=== PATIENT | female | born 1980 | race Caucasian/White ===

== ENCOUNTER 2024-07-30 15:34 | Outpatient (CLI) | payer MEDICARE, SELFPAY ==
--- NOTE | ~2024-07-30 | XR_ITS ---
Left Shoulder Technique: AP and scapular Y views were obtained. Clinical History: Pain Findings: No fracture or dislocation is seen. Osseous alignment is anatomic. The glenohumeral and acr omioclavicular joint spaces are preserved. Soft tissues are unremarkable. Impression: Unremarkable left shoulder radiographs. Reviewed, dictated and finalized at [facility]. Impression: Unremarkable left shoulder radiographs.
--- NOTE | ~2024-07-30 | XR_ITS ---
EXAMINATION: XR ankle LT min 3V DATE: 07/30/2024 16:29 INDICATION: Contracture, left foot. Multiple joint pain. TECHNIQUE: 4 views of left ankle were obtained. COMPARISON: None. FINDINGS: There is inversion of the foot. There is varus angulation at [place]opart joint. No fracture. Karine int spaces are normal. IMPRESSION: 1. No fracture. Reviewed, dictated and finalized at location B. IMPRESSION: 1. No fracture.
--- NOTE | ~2024-07-30 | XR_ITS ---
EXAMINATION: XR foot LT 2V DATE: 07/30/2024 16:29 INDICATION: Contracture, left foot. Multiple joint pain. TECHNIQUE: 2 views of left foot were obtained. COMPARISON: None. FINDINGS: There is inversion of the foot. There is varus angulation at Chopart joint. No fracture. Karine int spaces are normal. IMPRESSION: 1. No fracture. Reviewed, dictated and finalized at location B. IMPRESSION: 1. No fracture.
--- NOTE | ~2024-07-30 | XR_ITS ---
EXAMINATION: XR shoulder RT min 2V DATE: 07/30/2024 16:29 INDICATION: Right shoulder pain. TECHNIQUE: 4 views of right shoulder were obtained. COMPARISON: None. FINDINGS: Alignment is normal. No fracture. The glenohumeral joint is not well profiled. Joint spaces are normal. IMPRESSION: 1. Normal right shoulder. Note that the glenohumeral joint is not well profiled. Reviewed, dictated and finalized at location B. IMPRESSION: 1. Normal right shoulder. Note that the glenohumeral joint is not well profiled .
--- NOTE | ~2024-07-30 | XR_ITS ---
CHEST RADIOGRAPH, PA AND LATERAL CLINICAL HISTORY: R07.9 - Chest pain, unspecified . COMPARISON: None available TECHNIQUE: PA and lateral views of the chest. FINDINGS The cardiomediastinal silhouette is unremarkable. The lungs are clear. IMPRESSION: No focal infiltrate or effusion. If clinical suspicion persists, cross-sectional imaging (noncontrast enhanced CT examination of the c hest) is suggested for further evaluation. Reviewed, dictated and finalized at location A. IMPRESSION: No focal infiltrate or effusion. If clinical suspicion persists, cross-sectional imaging (noncontrast enhanced C T examination of the chest) is suggested for further evaluation.
== END 2024-07-30 15:35 | disposition home or self-care (01) ==
LOC: GOSHIMG 15:35
PROVIDERS: PCP Family Medicine; Visit Provider Family Medicine
DX: M25.511 Pain in right shoulder (principal); M25.512 Pain in left shoulder; M24.575 Contracture, left foot; G80.1 Spastic diplegic cerebral palsy; R07.9 Chest pain, unspecified
CPT/HCPCS: 71046; 73030; 73610; 73620

== ENCOUNTER 2024-08-09 14:54 | Outpatient (CLI) | payer MEDICARE, SELFPAY ==
--- NOTE | ~2024-08-09 | MR_ITS ---
EXAMINATION: MR shoulder RT wo con DATE: 08/09/2024 15:52 INDICATION: Right shoulder pain. Spastic diplegia cerebral palsy. TECHNIQUE: Magnetic resonance imaging (MRI) of the right shoulder radiographs dated 07/30/2024 shoulde r was performed without intravenous contrast. Sequences included axial PD-weighted FS FSE, coronal ob lique PD-weighted FS FSE, coronal oblique T2-weighted FS FSE, sagittal PD-weighted FS FSE, and sagitt al T1-weighted SE. COMPARISON: Radiograph dated 07/30/2024 FINDINGS: Coracoacromial arch: The acromion undersurface is flat in morphology (type I). The coracoacromial ligament is normal. Norm al acromioclavicular joint. Rotator cuff: Mild to moderate tendinopathy without discrete tear of the distal supraspinatus tendon and conjoined portion of the supraspinatus and infraspinatus tendons with mild degenerative cystic change at the un derlying superior facet footplate. The more posterior infraspinatus and teres minor tendons as well a s the subscapularis tendon are normal. Normal rotator cuff muscle bulk and signal. Biceps tendon, glenoid labrum and glenohumeral cartilage: Long head of the biceps tendon is normal. Glenoid labrum is normal. Glenohumeral cartilage is normal. Fluid: Physiologic amount of fluid in the glenohumeral joint and biceps tendon sheath. No loose osteochondr al bodies. Small amount of fluid in the subacromial/subdeltoid bursa consistent with mild bursitis. Bones: Normal marrow signal with no edema, fracture or abnormal marrow replacing process. IMPRESSION: 1. Mild to moderate tendinopathy without discrete tear at the distal supraspinatus tendon and conjoin ed supraspinatus and infraspinatus tendons. 2. Mild subacromial/subdeltoid bursitis. Reviewed, dictated and finalized at location B. IMPRESSION: 1. Mild to moderate tendinopathy without discrete tear at the distal supraspina tus tendon and conjoined supraspinatus and infraspinatus tendons. 2. Mild subacromial/subdeltoid bursitis.
--- NOTE | ~2024-08-09 | MR_ITS ---
EXAMINATION: MR shoulder LT wo con DATE: 08/09/2024 16:00 INDICATION: Left shoulder pain. Spastic diplegia cerebral palsy. TECHNIQUE: Magnetic resonance imaging (MRI) of the left shoulder was performed without intravenous co ntrast. Sequences included axial PD-weighted FS FSE, coronal oblique PD-weighted FS FSE, coronal obli que T2-weighted FS FSE, sagittal PD-weighted FS FSE, and sagittal T1-weighted SE. COMPARISON: Left shoulder radiographs dated 07/20/2024 FINDINGS: Evaluation mildly limited by small amount of motion artifact/layering on the coronal images. Coracoacromial arch: The acromion undersurface is flat in morphology (type I). The coracoacromial ligament is normal. Acro mioclavicular joint is normal. Rotator cuff: The supraspinatus, infraspinatus and teres minor tendons are normal. The subscapularis tendon is norm al. Normal rotator cuff muscle bulk and signal. Biceps tendon, glenoid labrum and glenohumeral cartilage: Long head of the biceps tendon is normal. Degenerative mild fraying along the free edge of the almond pan finisher ior labrum. Glenohumeral cartilage is normal. Fluid: Physiologic amount of fluid in the glenohumeral joint and biceps tendon sheath. No loose osteochondr al bodies. Mild increased fluid signal in the subacromial/subdeltoid bursa consistent with minimal bu rsitis. Bones: Normal marrow signal with no edema, fracture or abnormal marrow replacing process. IMPRESSION: 1. Minimal subacromial/subdeltoid bursitis. 2. Mild degenerative fraying along the peripheral free edge of the posterior glenoid labrum. Reviewed, dictated and finalized at location B. IMPRESSION: 1. Minimal subacromial/subdeltoid bursitis. 2. Mild degenerative fraying along the peripheral free edge of the posterior gl enoid labrum.
== END 2024-08-09 14:55 | disposition home or self-care (01) ==
LOC: GOSHIMG 14:55
PROVIDERS: PCP Family Medicine; Visit Provider Family Medicine
DX: M67.814 Other specified disorders of tendon, left shoulder (principal); M75.52 Bursitis of left shoulder; M75.51 Bursitis of right shoulder; G80.1 Spastic diplegic cerebral palsy; M24.573 Contracture, unspecified ankle
CPT/HCPCS: 73221